=== PATIENT | female | born 1990 | race Two or more races ===

== ENCOUNTER 2022-08-16 18:49 | Emergency (ER) | payer OTHER ==
[2022-08-16 19:13] VITALS: BP 127/90; PULSE 93; RESP 16; TEMP 98; BMI 25.9
[2022-08-16] MEDS ORDERED: DIPHTH,PERTUSS(ACELL),TET 0.5 ML DISP.SYRIN IM ONE ×2 (19:22→19:25)
[2022-08-16] MEDS ORDERED: ACETAMINOPHEN 500 MG TABLET (FP) PO ONE (19:22)
[2022-08-16] MEDS ORDERED: ACETAMINOPHEN 500 MG TABLET (FP) ONE (19:25)
== END 2022-08-16 20:10 | disposition home or self-care (01) ==
LOC: FER 18:49
DX: S00.01XA Abrasion of scalp, initial encounter (principal); W06.XXXA Fall from bed, initial encounter
CPT/HCPCS: 99283-25

== ENCOUNTER 2022-09-13 16:20 | Emergency (ER) | payer OTHER ==
[2022-09-13 16:40] VITALS: BP 135/79; PULSE 93; RESP 16; TEMP 98; BMI 27.0
[2022-09-13] MEDS ORDERED: METHOCARBAMOL 500 MG TABLET PO ONE (17:07)
[2022-09-13] MEDS ORDERED: KETOROLAC TROMETHAMINE 30 MG/1 ML VIAL IM ONE (17:07)
[2022-09-13] MEDS ORDERED: KETOROLAC TROMETHAMINE 30 MG/1 ML VIAL ONE (17:09)
[2022-09-13] MEDS ORDERED: METHOCARBAMOL 500 MG TABLET ONE (17:09)
== END 2022-09-13 17:14 | disposition home or self-care (01) ==
LOC: JERFT 16:20
PROC: 3E0233Z Introduction of Anti-inflammatory into Muscle, Percutaneous Approach (ICD-10-PCS; principal; 2022-09-13)
DX: M54.50 Low back pain, unspecified (principal)
CPT/HCPCS: 99284-25

== ENCOUNTER 2023-09-10 15:45 | Emergency (ER) | payer OTHER ==
[2023-09-10 15:57] VITALS: BP 128/88; PULSE 96; RESP 18; TEMP 98.8; BMI 27.0
[2023-09-10] MEDS ORDERED: ONDANSETRON *ODT* 4 MG TABLET ONE (16:24)
[2023-09-10] MEDS ORDERED: LIDOCAINE VISCOUS 2% ORAL/TOP 100 ML BOTTLE ONE (16:24)
[2023-09-10] MEDS ORDERED: MAG HYDROX/AL HYDROX/SIMETH 30 ML UNIT-DOSE CUP ONE (16:24)
[2023-09-10] MEDS: ONDANSETRON *ODT* 4 MG TABLET SL ONE (16:30)
[2023-09-10] MEDS: MAG HYDROX/AL HYDROX/SIMETH 30 ML UNIT-DOSE CUP PO ONE (16:30)
[2023-09-10] MEDS: LIDOCAINE VISCOUS 2% ORAL/TOP 15 ML UNIT-DOSE CUP MM ONE (16:30)
== END 2023-09-10 17:25 | disposition home or self-care (01) ==
LOC: FER 15:45
DX: J02.9 Acute pharyngitis, unspecified (principal); R11.10 Vomiting, unspecified; R07.0 Pain in throat
CPT/HCPCS: 82962; 87651; 99283-25; Q0162

== ENCOUNTER 2024-01-11 08:41 | Emergency (ER) | payer OTHER ==
[2024-01-11 09:41] VITALS: BP 122/86; PULSE 107; RESP 16; TEMP 98.7; BMI 25.2
[2024-01-11] MEDS ORDERED: IBUPROFEN 400 MG TABLET (FP) PO ONE (09:48)
[2024-01-11] MEDS: IBUPROFEN 400 MG TABLET (FP) PO ONE (09:53)
== END 2024-01-11 10:21 | disposition home or self-care (01) ==
LOC: FER 08:41
DX: J02.9 Acute pharyngitis, unspecified (principal); R05.9 Cough, unspecified; B34.9 Viral infection, unspecified; Z20.822 Contact with and (suspected) exposure to COVID-19
CPT/HCPCS: 0241U-QW; 99283-25